=== PATIENT | female | born 1950 | race African-American/Black ===

== ENCOUNTER 2017-01-09 10:13 | Outpatient (CLI) | payer MEDICARE, BC ==
[2017-01-09 10:51] LABS: INR 1.4 (0.9-1.1); PROTHROMBIN TIME 14.7 SEC (9.30-11.50)
== END 2017-01-09 12:13 | disposition home or self-care (01) ==
LOC: LAB 10:13
DX: I63.9 Cerebral infarction, unspecified (principal)
CPT/HCPCS: 36415; 85610; 85730